=== PATIENT | female | born 1940 | race Caucasian/White ===

== ENCOUNTER 2016-09-04 05:10 | Day surgery (SDC) | payer MEDICARE, BC ==
[~2016-09-04] VITALS: Ht 157.5 cm; Wt 54.1 kg
[~2016-09-04 05:10] MED LIST: ASPI81TA2 PO; CHOL20004 PO; CLON1TAB4 PO; DICY20 PO; DILT240C3 PO; DIPHEN/ATROPINE PO; ENAL5TAB PO; FISH1CAP49 PO; FentaNYL CITRATE-PF 100 MCG/2 ML VIAL IVP ONE; LIDOCAINE HCL/PF 2% 5 ML VIAL IM ONE; LOPE-26 PO; METF500T4 PO; MIDAZOLAM HCL 2 MG/2 ML VIAL IVP ONE; OMEP40CA12 PO; PRIM250T30 PO; PROPOFOL 1% 20 ML VIAL IVP ONE; RED600CA6 PO; TRAM50TA4 PO
[2016-09-04] MEDS ORDERED: RINGERS SOLUTION,LACTATED 1,000 ML IV ONE ×3 (05:24→08:27)
[2016-09-04] MEDS ORDERED: CeFAZolin 2 GM/DEXTROSE 50 ML IV ONE ×2 (06:04→08:00)
[2016-09-04] MEDS ORDERED: CELE100 PO (06:26)
[2016-09-04] MEDS ORDERED: ELUX75TA PO (06:26)
[2016-09-04] MEDS ORDERED: LOPE-162 PO (06:26)
[2016-09-04 06:42] LABS: BASOPHILS # (AUTO) 0.02 K/uL (0.00-0.20); BASOPHILS % (AUTO) 0.5 % (0.0-2.0); HEMATOCRIT 26.1 % (36-46); HEMOGLOBIN 8.5 g/dL (12.0-16.0); LYMPHOCYTES # (AUTO) 1.3 K/uL (1.0-4.8); LYMPHOCYTES % (AUTO) 36.8 % (22.0-44.0); MEAN CORPUSCULAR HEMOGLOBIN 29.7 pg (26.0-34.0); MEAN CORPUSCULAR HGB CONC 32.4 G/dL (31.0-37.0); MEAN CORPUSCULAR VOLUME 92 fL (80-100); MONOCYTES # (AUTO) 0.4 K/uL (0.1-1.0); MONOCYTES % (AUTO) 9.6 % (2.0-9.0); NEUTROPHILS # (AUTO) 1.5 K/uL (1.8-7.7); NEUTROPHILS % (AUTO) 42.2 % (40.0-70.0); PLATELET COUNT (AUTO) 228 K/uL (150-450); RED BLOOD CELL COUNT(AUTO) 2.85 MIL/uL (4.00-5.20); RED CELL DISTRIBUTION WIDTH 15.4 % (11.5-14.5); WHITE BLOOD COUNT (AUTO) 3.7 K/uL (4.5-11.0)
[2016-09-04] MEDS ORDERED: SODIUM CL IRRIG SOLN BAG 0 ML IRRIG ONE (06:46)
[2016-09-04 07:01] LABS: ANION GAP 7 mmol/L (8-16); CALCIUM, TOTAL 8.3 mg/dL (8.8-10.5); CARBON DIOXIDE 29 mmol/L (22-29); CHLORIDE 105 mmol/L (98-107); CREATININE 0.75 mg/dL (0.60-1.30); GLOMERULAR FILTR. RATE CALC > 60 mL/min (>60); POTASSIUM 4.7 mmol/L (3.5-5.1); SODIUM SERUM 141 mmol/L (136-145); UREA NITROGEN, BLOOD 9 mg/dL (7-18)
[2016-09-04] MEDS ORDERED: OXYGEN THERAPY IH SCH (08:00)
[2016-09-04] MEDS ORDERED: MEPERIDINE-PF 25 MG/ML SYRINGE IVP PRN (08:00)
[2016-09-04] MEDS ORDERED: SODIUM CL IRRIG SOLN BAG 6,000 ML IRRIG ONE ×2 (08:19→08:27)
[2016-09-04] MEDS: BUPIVACAINE 0.25%/EPI 1:200,000/PF 10 ML VIAL ONE ×2 (08:37→08:40)
[2016-09-04] MEDS: TRIAMCINOLONE ACETONIDE 40 MG/ML VIAL ONE ×2 (08:39→08:40)
[2016-09-04] MEDS ORDERED: FentaNYL CITRATE-PF 100 MCG/2 ML VIAL ONE (09:21)
[2016-09-04] MEDS: FentaNYL CITRATE-PF 100 MCG/2 ML VIAL IVP PRN ×2 (09:22→09:35)
[2016-09-04] MEDS ORDERED: ACETAMINOPHEN 1000 MG/ISO-OSM 100 ML IV ONE (09:30)
[2016-09-04] MEDS ORDERED: KETOROLAC TROMETHAMINE 30 MG/ML VIAL IVP ONE (09:30)
[2016-09-04] MEDS ORDERED: ONDANSETRON HCL 4 MG/2 ML VIAL ONE (10:11)
[2016-09-04] MEDS ORDERED: ONDANSETRON HCL 4 MG/2 ML VIAL IVP PRN (10:15)
[2016-09-04] MEDS ORDERED: PROMETHAZINE HCL 25 MG/ML VIAL IM ONE (10:15)
[2016-09-04] MEDS ORDERED: PROMETHAZINE HCL 25 MG/ML VIAL ONE (10:39)
== END 2016-09-04 11:25 | disposition home or self-care (01) ==
LOC: SURGERY 05:10
PROVIDERS: ATTEND Orthopaedic Surgery
DX: S83.242A Other tear of medial meniscus, current injury, left knee, initial encounter (principal); M17.12 Unilateral primary osteoarthritis, left knee; X58.XXXA Exposure to other specified factors, initial encounter; Y93.9 Activity, unspecified; Y92.9 Unspecified place or not applicable; Y99.9 Unspecified external cause status; M65.862 Other synovitis and tenosynovitis, left lower leg; I10 Essential (primary) hypertension; E11.9 Type 2 diabetes mellitus without complications; Z87.891 Personal history of nicotine dependence
CPT/HCPCS: 29875; 29881; 36415; 80048; 85025; J0131; J0690; J1885; J2250; J2405; J2550; J2704; J3010; J3301; J3490 ×2; J7120